=== PATIENT | female | born 1955 | race Caucasian/White ===

== ENCOUNTER 2021-06-01 14:27 | Inpatient (IN) | payer OTHER ==
[~2021-06-01] VITALS: Ht 162.6 cm; Wt 68.9 kg
--- NOTE | 2021-06-01 14:30 | NUR ---
BIBRA 102 FROM WORK C/O WITNESSED SEIZURE EPISODE. NO INJURY. BS 152. PT A/OX3 DOES NOT RECALL EPISODE OF SEIZURE. TOLERATING R/A WELL WITH NO SOB. NO INJURY NOTED AT THIS TIME. SEIZURE PROTOCOL AND SAFETY IN PLACE. CONNECTED PT TO TELE MONITOR & POX
--- NOTE | 2021-06-01 14:50 | NUR ---
INITIATED RAC#20G S/L; BLOOD WORK COLLECTED AND SENT TO LAB
--- NOTE | 2021-06-01 14:58 | NUR ---
BS 135. DR [place] AWARE
--- NOTE | 2021-06-01 15:00 | NUR ---
URINE COLLECTED AND SENT TO LAB
--- NOTE | 2021-06-01 15:15 | NUR ---
PT TAKEN TO CT VIA [facility]
[2021-06-01 15:16] LABS: BASOPHILS % (AUTO) 0.3 % (0.0-2.0); EOSINOPHILS % (AUTO) 0.5 % (0.0-6.0); HEMATOCRIT 34 % (33-45); HEMOGLOBIN 10.5 g/dL (11.5-14.8); LYMPHOCYTES # (AUTO) 1.5 K/uL (0.8-4.8); LYMPHOCYTES % (AUTO) 20.2 % (20.0-44.0); MEAN CORPUSCULAR HGB CONC 31 g/dl (31.0-36.0); MEAN CORPUSCULAR VOLUME 76 fL (82-100); MONOCYTES # (AUTO) 0.2 K/uL (0.1-1.30); MONOCYTES % (AUTO) 2.6 % (2.0-12.0); NEUTROPHILS # (AUTO) 5.8 K/uL (1.8-8.9); NEUTROPHILS % (AUTO) 76.4 % (43.0-81.0); PLATELET COUNT (AUTO) 442 K/uL (150-450); RED BLOOD CELL COUNT(AUTO) 4.44 MIL/uL (4.0-5.2); WHITE BLOOD COUNT (AUTO) 7.6 K/uL (4.3-11.0)
--- NOTE | 2021-06-01 15:21 | NUR ---
PT RETURNED TO ER ROOM 7
[2021-06-01 15:36] LABS: CALCIUM, SERUM 8.9 mg/dL (8.5-10.1); CARBON DIOXIDE 24 mmol/L (21-32); CHLORIDE 100 mmol/L (98-107); CREATININE 0.8 mg/dL (0.6-1.3); GLUCOSE 143 mg/dL (74-106); POTASSIUM 4.4 mmol/L (3.5-5.1); SODIUM SERUM 137 mmol/L (136-145); UREA NITROGEN, BLOOD 16 mg/dL (7-18)
[2021-06-01 15:47] LABS: ALANINE AMINOTRANSFERASE 17 U/L (12-78); ALBUMIN 3.9 g/dL (3.4-5.0); ALCOHOL, BLOOD < 3 mg/dL (0-0); ALKALINE PHOSPHATASE 93 U/L (46-116); ASPARTATE AMINOTRANSFERASE 13 U/L (15-37); BILIRUBIN,DIRECT 0.1 mg/dL (0.0-0.2); BILIRUBIN,TOTAL 0.3 mg/dL (0.2-1.0); TOTAL PROTEIN, SERUM 7.5 g/dL (6.4-8.2)
--- NOTE | 2021-06-01 16:15 | NUR ---
Susanna sandy in [facility] - 06/01/21 at 1638 by ADRIANA CALLED TO BED 329
[2021-06-01] MEDS ORDERED: CT SWABBABLE VALVE TRANS SET 1 EA INFUS.SET MC ONE (16:40)
[2021-06-01] MEDS ORDERED: IOHEXOL-350 100 ML VIAL IV ONE (16:40)
[2021-06-01] MEDS ORDERED: IV NS 0.9% 250 ML IV ONE (16:40)
--- NOTE | 2021-06-01 17:37 | NUR ---
MOVE SHEET SUBMITTED.
[2021-06-01] MEDS ORDERED: ACETAMINOPHEN 325 MG TABLET PO PRN (18:30)
[2021-06-01] MEDS ORDERED: MAGNESIUM HYDROXIDE 30 ML UDC PO PRN (18:30)
[2021-06-01] MEDS ORDERED: LORAZEPAM INJ 2 MG/ML VIAL IV PRN (18:30)
[2021-06-01] MEDS ORDERED: ONDANSETRON HCL/PF 4 MG/2 ML VIAL IVP PRN (18:30)
[2021-06-01] MEDS ORDERED: MAG HYDROX/AL HYDROX/SIMETH 30 ML UDC PO PRN (18:30)
[2021-06-01] MEDS ORDERED: Z GUARD REMEDY 2 OZ OINT TP PRN (18:30)
--- NOTE | 2021-06-01 18:45 | NUR ---
GOT BED 115-2
--- NOTE | 2021-06-01 18:51 | NUR ---
COVID SWAB COLLECTED AND SENT TO LAB
--- NOTE | 2021-06-01 18:53 | NUR ---
REPORT GIVEN TO NURSE NOZZLE TENDER
--- NOTE | 2021-06-01 19:15 | NUR ---
PT TRANSFERRED TO JOSE 115 VIA ACLS PROTOCOL. ALL BELONGINGS WITH PT
--- NOTE | 2021-06-01 19:55 | NUR ---
RN NOTE: COVID VACCINATION PER PT, SHE RECEIVED BOTH VACCINES PFIZER AUG AND SEPTEMBER 2020
[2021-06-01 20:00] VITALS: BP 143/72
[2021-06-01] MEDS: ENOXAPARIN SODIUM 40 MG/0.4 ML DISP.SYRIN SQ SCH (20:14)
[2021-06-01] MEDS: IV NS 0.9% 1,000 ML IV PRN (20:14)
[2021-06-02] VITALS: BP 145/75
--- NOTE | 2021-06-02 00:58 | NUR ---
BRIM EDGE TRIMMER NOTES: RECEIVED PATIENT FROM ER, PATIENT STABLE, NO COMPLAINTS OF PAIN, NO DISTRESS NOTED, NO SOB NOTED, V/S STABLE, PATIENT A/O X4, ABLE TO AMBULATE, BED ALARM TURNED ON, BED AT LOWEST POSITIONS, SIDE RAILS UP X3, CHANNELING MACHINE RUNNER PLACED, SR NOTED WITH INVERTED T WAVES AND ST ELEVATION, WILL CONTINUE TO MONITOR. Addendum: 06/02/21 at 0532 by REFUGIO CONNER RN RECEIVED PATIENT AT 1910 06/01
[2021-06-02 04:00] VITALS: BP 144/97
--- NOTE | 2021-06-02 05:31 | NUR ---
PARLIAMENTARY ARCHIVIST NOTES: PERSON TO CONTACT: CARMEN (SON) - [phone]
--- NOTE | 2021-06-02 07:02 | NUR ---
RN CLOSING NOTES: PATIENT STABLE, BED AT LOWEST POSITION, CALL LIGHT WITHIN REACH.
[2021-06-02 07:33] LABS: BASOPHILS % (AUTO) 0.4 % (0.0-2.0); EOSINOPHILS % (AUTO) 1.4 % (0.0-6.0); HEMATOCRIT 33 % (33-45); HEMOGLOBIN 10.6 g/dL (11.5-14.8); LYMPHOCYTES # (AUTO) 2.4 K/uL (0.8-4.8); LYMPHOCYTES % (AUTO) 35.2 % (20.0-44.0); MEAN CORPUSCULAR HGB CONC 32 g/dl (31.0-36.0); MEAN CORPUSCULAR VOLUME 75 fL (82-100); MONOCYTES # (AUTO) 0.6 K/uL (0.1-1.30); MONOCYTES % (AUTO) 8.5 % (2.0-12.0); NEUTROPHILS # (AUTO) 3.8 K/uL (1.8-8.9); NEUTROPHILS % (AUTO) 54.5 % (43.0-81.0); PLATELET COUNT (AUTO) 428 K/uL (150-450); RED BLOOD CELL COUNT(AUTO) 4.37 MIL/uL (4.0-5.2)
--- NOTE | 2021-06-02 07:45 | NUR ---
RN NOTES PATIENT ENDORSED BY INSPECTOR PACKER IN STABLE CONDITIONS. PATIENT IS CURRENTLY AWAKE IN BED, A&O X4. PATIENT HAS NO COMPLAINTS OF PAIN, NO SOB NOTED, NO SIGNIFICANT FINDINGS UPON MORNING NURSING ASSESSMENTS. PATIENT IS ABLE TO AMBULATE, THE BED ALARM TURNED ON AND IS PLACED AT THE LOWEST POSITION, SIDE RAILS UP X3, AS400 CONSULTANT PLACED, SR NOTED WITH INVERTED T WAVES AND ST ELEVATION, WILL CONTINUE TO MONITOR FOR ANY CHANGES THROUGHOUT THE SHIFT
[2021-06-02 08:00] VITALS: BP 150/71
[2021-06-02 08:09] LABS: CALCIUM, SERUM 8.7 mg/dL (8.5-10.1); CREATININE 0.7 mg/dL (0.6-1.3); MAGNESIUM 2.2 mg/dL (1.8-2.4); PHOSPHORUS 4.1 mg/dL (2.5-4.9); POTASSIUM 3.8 mmol/L (3.5-5.1)
[2021-06-02] MEDS: IV NS 0.9% 1,000 ML IV PRN (08:56)
[2021-06-02 12:00] VITALS: BP 141/63
[2021-06-02 16:00] VITALS: BP 131/63
--- NOTE | 2021-06-02 18:37 | NUR ---
RN CLOSING NOTES; PT IN SUPINE POSITION WATCHING TV. A/OX4, AMBULATES TO THE RESTROOM. TAHIRA ML #20 INSERTED TODAY RUNNING NS @ 75ML/HR. FLUSHED, PATENT WITH NO SIGNS OF INFILTRATION. CONTINUE TO HYDRATE PATIENT, NEURO MONITOR, AND CONTINUE TO GIVE GI/DT PHOPHYLAXIS. ALL SAFETY MEASURES RENDERED, BED IN LOWEST POS. LOCKED, WITH CALL LIGHT WITHIN REACH. ENDORSED TO PASTA MAKER IN STABLE CONDITION.
--- NOTE | 2021-06-02 19:00 | NUR ---
RN OPENING NOTES RECEIVED REPORT FROM MORNING NURSE. PATIENT IN BED A/O X4 FAMILY AT BEDSIDE. NO SOB, NO DISTRESS NO PAIN AT THIS TIME. WITH IV ACCESS AT R AC G#20 PATENT FLUSHES WELL NO INFILTRATION NOTED AT THIS TIME. ON CONTINUOS IVF PNS @75 CC/HR. SAFETY MEASURE IN PLACE, HOB ELEVATED. BED ON LOWEST POSITION AND LOCKED. CALL LIGHT WITHIN REACH. WILL CONTINUE TO MONITOR CLOSELY.
[2021-06-02 20:00] VITALS: BP 134/62
[2021-06-02] MEDS: ENOXAPARIN SODIUM 40 MG/0.4 ML DISP.SYRIN SQ SCH (21:23)
[2021-06-03] VITALS: BP 130/60
[2021-06-03] MEDS: IV NS 0.9% 1,000 ML IV PRN (03:20)
[2021-06-03 04:00] VITALS: BP 148/70
--- NOTE | 2021-06-03 06:49 | NUR ---
RN CLOSING NOTES PATIENT IN BED NO SIGNIFICANT CHANGES IN HEALTH CONDITION THIS SHIFT. NO SOB, NO DISTRESS, NO EPISODE OF SEIZURE NOTED. ALL DUE MEDS GIVEN ORDERED. ALL SAFETY MEASURES IN PLACE, HOB ELEVATED, CALL LIGHT WITHIN REACH. ENDORSED
--- NOTE | 2021-06-03 07:58 | NUR ---
RN OPENING NOTE PATIENT RECEIVED IN BED, AWAKE, A&OX4. PATIENT ON ROOM AIR WITH NO SIGNS OF LABORED BREATHING AT THIS TIME. RIGHT AC 20G PIV IN PLACE, PATENT WITH NO SIGNS OF INFILTRATION RUNNING NS AT 75CC/HR. NO SIGNS OF DISTRESS NOTED AT THIS TIME. BED LOCKED AND IN LOWEST POSITION, CALL LIGHT WITHIN REACH, 3 SIDE RAILS UP. WILL CONTINUE TO MONITOR.
[2021-06-03 08:00] VITALS: BP 142/80
--- NOTE | 2021-06-03 10:50 | NUR ---
spoke with nura he will evaluate patient later today.
[2021-06-03 11:11] LABS: BASOPHILS % (AUTO) 0.5 % (0.0-2.0); EOSINOPHILS % (AUTO) 1.9 % (0.0-6.0); HEMATOCRIT 33 % (33-45); HEMOGLOBIN 10.7 g/dL (11.5-14.8); LYMPHOCYTES # (AUTO) 1.6 K/uL (0.8-4.8); MEAN CORPUSCULAR HGB CONC 32 g/dl (31.0-36.0); MEAN CORPUSCULAR VOLUME 75 fL (82-100); MONOCYTES # (AUTO) 0.4 K/uL (0.1-1.30); NEUTROPHILS # (AUTO) 3.3 K/uL (1.8-8.9); NEUTROPHILS % (AUTO) 59.6 % (43.0-81.0); PLATELET COUNT (AUTO) 432 K/uL (150-450); RED BLOOD CELL COUNT(AUTO) 4.46 MIL/uL (4.0-5.2); WHITE BLOOD COUNT (AUTO) 5.5 K/uL (4.3-11.0)
[2021-06-03 11:34] LABS: CALCIUM, SERUM 8.7 mg/dL (8.5-10.1); CREATININE 0.7 mg/dL (0.6-1.3); POTASSIUM 3.8 mmol/L (3.5-5.1)
[2021-06-03 12:08] VITALS: BP 137/74
[2021-06-03] MEDS ORDERED: LEVE250T2 PO (13:23)
[2021-06-03] MEDS ORDERED: LEVETIRACETAM (250 MG) 250 MG TABLET PO SCH (13:30)
[2021-06-03] MEDS ORDERED: LEVETIRACETAM (500MG) 1,000 MG in IV NS 0.9% 100 ML IV ONE (13:30)
--- NOTE | 2021-06-03 18:14 | NUR ---
RN NOTE PATIENT DISCHARGED PER MD ORDER. PATIENT MEDICALLY STABLE AT THIS TIME OF DISCHARGE, ACCOMPANIED BY AND SON.
--- NOTE | 2021-06-03 19:03 | NUR ---
RN NOTE OKAY TO CALL IN PRESCRIPTION MEDICATION TO PHARMACY PER MD ORDER.
--- NOTE | 2021-06-03 19:23 | NUR ---
prescription of keppra call in to pharmacy given by amanda MORALES [facility] [address] [place] [address]. [phone],instruction given to amanda morales to call morris charge nurse if there is any question.SON PHONE NUMBER [phone].ALSO INSTRUCTED TO FOLLOW UP WITH PRIMARY MD IN ONE WEEEK. ENDORSED TO NIGHT CHARGE ROSALIND .
--- NOTE | 2021-06-03 19:27 | NUR ---
DENISE HORNER UNABLE TO FILL INSCRIPT SON GAVE A NEW PHARMACY.
== END 2021-06-03 18:17 | disposition home or self-care (01) | DRG 100 ==
LOC: ER 14:49 → TELE1 18:48 → MEDSG1 06-03 08:07
PROVIDERS: ADMIT Internal Medicine; ATTEND Internal Medicine
PROC: 05HB33Z Insertion of Infusion Device into Right Basilic Vein, Percutaneous Approach (ICD-10-PCS; principal; 2021-06-02)
DX: R56.9 Unspecified convulsions (principal); G93.41 Metabolic encephalopathy; E87.2 Acidosis; I44.7 Left bundle-branch block, unspecified; D64.9 Anemia, unspecified; Z20.822 Contact with and (suspected) exposure to COVID-19
CPT/HCPCS: 36410; 36415; 70450-TC; 71045-TC; 80048-TC; 80076-TC; 82962-TC; 83735-TC; 84100-TC; 84484-TC; 85025-TC; 85378-TC; 87081-TC; G0378; G0480; J1650; J1953; J3490; J7030; J7050; Q9967